=== PATIENT | male | born 1980 | race Caucasian/White ===

== ENCOUNTER 2021-12-09 15:33 | Emergency (ER) | payer OTHER ==
[2021-12-09 17:28] LABS: HEMOGLOBIN 14.1 gm/dl (14.0-17.5); RED BLOOD COUNT 4.65 M/UL (4.20-5.50); WHITE BLOOD COUNT 9.7 K/UL (4.5-11.0)
[2021-12-09 18:01] LABS: BUN/CREATININE RATIO 11 (0-10)
[2021-12-09] MEDS ORDERED: CIPRO500 MG PO (20:56)
[2021-12-09] MEDS ORDERED: HYDROCODON-ACE1 EAC4 PO ×3 (20:59→21:25)
== END 2021-12-09 21:41 | disposition home or self-care (01) ==
LOC: ER1 15:33
PROVIDERS: Student in an Organized Health Care Education/Training Program
DX: N13.2 Hydronephrosis with renal and ureteral calculous obstruction (principal); N39.0 Urinary tract infection, site not specified; Z87.442 Personal history of urinary calculi
CPT/HCPCS: 73562; 80053; 81001; 85025; 87040; 87086; 96374; 96375; 99284; J0696; J1200; J2930